=== PATIENT | female | born 1980 | race Caucasian/White ===

== ENCOUNTER 2017-06-28 10:00 | Emergency (ER) | payer OTHER ==
[2017-06-28 10:10] VITALS: BMI 30.1
--- NOTE | 2017-06-28 10:26 | PDOC ---
History of Present Illness - General Chief Complaint: Pain, Acute Stated Complaint: CONSTIPATION&FLANK PAIN Time Seen by Provider: 06/28/17 10:15 History Source: Patient - History of Present Illness Timing/Duration: reports: constant Quality: reports: moderate Abdominal Pain Onset Location: reports: flank Past History - Past Medical History Allergies/Adverse Reactions: Allergies Allergy/AdvReac Type Severity Reaction Status Date / Time No Known Allergies Allergy Verified 06/28/17 10:06 Home Medications: Ambulatory Orders Polyethylene Glycol 3350 [Miralax (For Daily Use) -] 17 gm PO DAILY #1 bottle Other medical history: DENIES - Psycho/Social/Smoking Cessation Hx Anxiety: No Suicidal Ideation: No Smoking Status: Yes Smoking History: Never smoked Have you smoked in the past 12 months: No Number of Cigarettes Smoked Daily: 0 Hx Alcohol Use: No Drug/Substance Use Hx: No Review of Systems - Review of Systems Constitutional: No: Chills, Fever, Malaise ABD/GI: Yes: Constipated, Abdominal cramping. No: Blood Streaked Bowels, Diarrhea, Nausea, Vomiting : No: Dysuria *Physical Exam - Vital Signs Last Vital Signs Temp Pulse Resp BP Pulse Ox 98.1 F 73 19 130/90 99 06/28/17 10:06 06/28/17 10:06 06/28/17 10:06 06/28/17 10:06 06/28/17 10:06 - Physical Exam General Appearance: Yes: Appropriately Dressed. No: Apparent Distress HEENT: positive: Normal Voice Neck: positive: Supple Respiratory/Chest: negative: Respiratory Distress Gastrointestinal/Abdominal: positive: Normal Bowel Sounds, Soft. negative: Tender, Distended, Guarding Rectal Exam: positive: other (no impaction). negative: hemorrhoids Musculoskeletal: negative: CVA Tenderness Extremity: positive: Normal Inspection Integumentary: positive: Dry, Warm Neurologic: positive: Fully Oriented, Alert, Normal Mood/Affect ED Treatment Course - LABORATORY CBC & Chemistry Diagram: 06/28/17 10:30 06/28/17 10:30 - RADIOLOGY Radiology Studies Ordered: Category Date Time Status ABDOMEN-KUB FLAT PLATE [RAD] Stat Radiology 06/28/17 10:22 Ordered Medical Decision Making - Medical Decision Making 06/28/17 10:23 36 yo F, no significant history, here with abdominal pain in the setting of constipation. Patient states for the past 2 weeks she has been constipated despite taking an [id number] laxative. At some point developed pain to right flank. No bright red blood per rectum, nausea, vomiting, fever or chills. No recent change in diet and no new medications. No history of similar symptoms in the past See exam Abd pain in setting of constipation Stable and well terry Abd benign w/ no rectal impaction -labs -Obs series -bowel regimen and reassess 06/28/17 11:25 Retained stool throughout colon compatible w/ constipation. No e/o rectal impaction of obstruction. labs wnl. Will given bowel regimen and reassess 06/28/17 12:44 Pt reports having several large BMs s/p meds and feels significantly better. Will dc home w/ bowel regimen and referral to PMD 06/28/17 12:52 *DC/Admit/Observation/Transfer Diagnosis at time of Disposition: Constipation Qualifiers: Constipation type: unspecified constipation type Qualified Code(s): K59.00 - Constipation, unspecified - Discharge Dispostion Disposition: HOME Condition at time of disposition: Improved - Prescriptions Prescriptions: Polyethylene Glycol 3350 [Miralax (For Daily Use) -] 17 gm PO DAILY #1 bottle - Referrals Referrals: Shaggy Huffman MD [Staff Physician] - - Patient Instructions Printed Discharge Instructions: Constipation Additional Instructions: Please be aware that you will continue to have BMs which may be watery, given enema in ED. Once this phase in complete, if you find that you continue to be constipated, start taking miralax as directed. If you resume your normal BM schedule, you can refrain from taking miralax Drink plenty of fluids and eat fruits and vegetables to prevent constipation in the future Please follow up with Dr Huffman for comprehensive evaluation
[2017-06-28 10:46] LABS: BASOPHIL 0.8 % (0-2.0); EOSINOPHIL 3.2 % (0-4.5); MCH 30.7 pg (25.7-33.7); MCHC 32.7 g/dl (32.0-36.0); MEAN CELL VOLUME 93.9 fl (80-96); MEAN PLT VOLUME 7.4 fl (7.5-11.1); NEUTROPHILS 66.6 % (42.8-82.8); PLATELET COUNT 317 K/MM3 (134-434); RDW 14.5 % (11.6-15.6)
[2017-06-28 11:05] LABS: URINE APPEARANCE CLEAR; URINE BILIRUBIN NEGATIVE (NEGATIVE); URINE BLOOD 2+ (NEGATIVE); URINE COLOR YELLOW; URINE GLUCOSE (UA) NEGATIVE (NEGATIVE); URINE KETONE NEGATIVE (NEGATIVE); URINE LEUK ESTERASE NEGATIVE (NEGATIVE); URINE NITRITE NEGATIVE (NEGATIVE); URINE PROTEIN NEGATIVE (NEGATIVE); URINE UROBILINOGEN NEGATIVE mg/dL (0.2-1.0)
[2017-06-28 11:09] LABS: URINE BACTERIA RARE /hpf (NONE SEEN); URINE MUCUS FEW; URINE RBC 2 /hpf (0-3); URINE WBC 2 /hpf (3-5)
[2017-06-28 11:16] LABS: ALBUMIN 3.4 g/dl (3.4-5.0); ALK PHOS 82 U/L (45-117); ANION GAP 3 (8-16); BILIRUBIN,TOTAL 0.2 mg/dL (0.2-1.0); CALCIUM 9.1 mg/dL (8.5-10.1); CO2 28 mmol/L (21-32); CREATININE 0.7 mg/dL (0.55-1.02); GLUCOSE,RANDOM 91 mg/dL (74-106); SGOT/AST 12 U/L (15-37); SGPT/ALT 30 U/L (12-78)
[2017-06-28] MEDS ORDERED: LACTULOSE 20 GM/30 ML UDC (FOR ORAL USE ONLY) PO ONE (11:24)
[2017-06-28] MEDS ORDERED: SODIUM PHOSPHATE/NA BIPHOS 133 ML ENEMA PR ONE (11:24)
[2017-06-28] MEDS ORDERED: LACTULOSE 20 GM/30 ML UDC (FOR ORAL USE ONLY) ONE (11:41)
--- NOTE | 2017-06-28 13:02 | PDOC ---
*Physical Exam - Vital Signs Last Vital Signs Temp Pulse Resp BP Pulse Ox 98.1 F 73 19 130/90 99 06/28/17 10:06 06/28/17 10:06 06/28/17 10:06 06/28/17 10:06 06/28/17 10:06 - Physical Exam General Appearance: Yes: Nourished, Appropriately Dressed HEENT: positive: EOMI, OMAR, Normal ENT Inspection, Normal Voice Neck: positive: Trachea midline Respiratory/Chest: positive: Lungs Clear, Normal Breath Sounds Cardiovascular: positive: Regular Rhythm, Regular Rate Gastrointestinal/Abdominal: positive: Normal Bowel Sounds, Soft. negative: Tender Extremity: positive: Normal Capillary Refill Integumentary: positive: Normal Color Neurologic: positive: software applications architect II-XII NML intact, Fully Oriented ED Treatment Course - LABORATORY CBC & Chemistry Diagram: 06/28/17 10:30 06/28/17 10:30 - ADDITIONAL ORDERS Additional order review: Laboratory Results 06/28/17 06/28/17 10:30 10:30 Sodium 137 Potassium 4.9 Chloride 106 Carbon Dioxide 28 Anion Gap 3 L BUN 12 Creatinine 0.7 Creat Clearance w eGFR > 60 Random Glucose 91 Calcium 9.1 Total Bilirubin 0.2 AST 12 L ALT 30 Alkaline Phosphatase 82 Total Protein 7.0 Albumin 3.4 Urine Color Yellow Urine Appearance Clear Urine pH 6.0 Urine Protein Negative Urine Glucose (UA) Negative Urine Ketones Negative Urine Blood 2+ H Urine Nitrite Negative Urine Bilirubin Negative Urine Urobilinogen Negative Ur Leukocyte Esterase Negative Urine RBC 2 Urine WBC 2 Ur Epithelial Cells Rare Urine Bacteria Rare Urine Mucus Few Urine HCG, Qual Negative 06/28/17 10:30 RBC 4.18 MCV 93.9 MCHC 32.7 RDW 14.5 MPV 7.4 L Neutrophils % 66.6 Lymphocytes % 23.5 Monocytes % 5.9 Eosinophils % 3.2 Basophils % 0.8 - Medications Given in the ED: ED Medications Discontinued Medications Generic Name Dose Route Start Last Admin Trade Name Freq PRN Reason Stop Dose Admin Lactulose 20 gm 06/28/17 11:24 06/28/17 11:50 Cephulac (Oral Use) PO 06/28/17 11:25 20 gm ONCE ONE Administration Sodium Phosphate 133 ml 06/28/17 11:24 06/28/17 11:50 Fleet Adult Rectal Enema - [place] 06/28/17 11:25 133 ml ONCE ONE Administration Medical Decision Making - Medical Decision Making Agree with PA's evaluation, assessment, and plan. 06/28/17 12:52 36 F presenting with abdominal cramping and constipation, now resolved after bowel regimen and enema in ER. Has had multiple BMs since arriving. Abdominal exam completely benign, w/o TTP or distention. No CVAT. Labs unremarkable. - DC home with bowel regimen - PMD f/u *DC/Admit/Observation/Transfer Diagnosis at time of Disposition: Constipation Qualifiers: Constipation type: unspecified constipation type Qualified Code(s): K59.00 - Constipation, unspecified - Discharge Dispostion Disposition: HOME Condition at time of disposition: Improved - Prescriptions Prescriptions: Polyethylene Glycol 3350 [Miralax (For Daily Use) -] 17 gm PO DAILY #1 bottle - Referrals Referrals: Shaggy Huffman MD [Staff Physician] - - Patient Instructions Printed Discharge Instructions: Constipation Additional Instructions: Please be aware that you will continue to have BMs which may be watery, given enema in ED. Once this phase in complete, if you find that you continue to be constipated, start taking miralax as directed. If you resume your normal BM schedule, you can refrain from taking miralax Drink plenty of fluids and eat fruits and vegetables to prevent constipation in the future Please follow up with Dr Huffman for comprehensive evaluation - Attestations Physician Attestion: 06/28/17 13:52 I, Dr. Gurinder Pinon MD, attest that this document has been prepared under my direction and personally reviewed by me in its entirety. I further attest, that it accurately reflects all work, treatment, procedures and medical decision -making performed by me.
[2017-06-28 13:10] VITALS: BP 123/71; PULSE 78; TEMP 98.5
== END 2017-06-28 13:11 | disposition home or self-care (01) ==
LOC: JER 10:00
DX: K59.00 Constipation, unspecified (principal)
CPT/HCPCS: 36415; 74000-TC; 80053; 81003; 81015; 84703; 85025; 99282-25

== ENCOUNTER 2018-03-31 22:08 | Emergency (ER) | payer OTHER ==
[2018-03-31 22:21] VITALS: BP 121/62; PULSE 70; TEMP 98.5; BMI 36.6
[2018-03-31] MEDS ORDERED: SULFAMETHOXAZOLE/TRIMETHOPRIM 800MG/160MG D.S. TABLET PO ONE (23:16)
[2018-03-31] MEDS ORDERED: SULFAMETHOXAZOLE/TRIMETHOPRIM 800MG/160MG D.S. TABLET ONE (23:19)
[2018-03-31] MEDS ORDERED: IBUPROFEN 400 MG TABLET (FP) PO ONE ×2 (23:23→23:26)
--- NOTE | 2018-03-31 23:23 | PDOC ---
History of Present Illness - General History Source: Patient Exam Limitations: No Limitations - History of Present Illness Initial Comments: 03/31/18 23:25 The patient is a 37 year old female with a significant PMH of hemorrhoids who presents to the emergency department with anal pain with nonspecific onset. The patient states she has had hemorrhoids for a significant amount of time which is contributing to her anal pain despite compliance with her inflammation creams. She also notes associated pressure in the lower gluteal area bilaterally. The patient denies fever and chills. She denies hematochezia or melena. The patient denies chest pain, shortness of breath, headache and dizziness. Denies nausea, vomit, diarrhea and constipation. Denies dysuria, frequency, urgency and hematuria. Allergies: NKA Past surgical history: Social history: No reported cigarette, alcohol, or drug use. PCP: Dr. Ruiz <Bud Blas - Last Filed: 03/31/18 23:24> - General History Source: Patient <Wiley Biswas - Last Filed: 04/01/18 19:21> - General Chief Complaint: Pain Stated Complaint: PAIN Time Seen by Provider: 03/31/18 23:16 Past History <Bud Blas - Last Filed: 03/31/18 23:24> - Past Medical History COPD: No - Suicide/Smoking/Psychosocial Hx Smoking Status: Yes Smoking History: Never smoked Have you smoked in the past 12 months: No Number of Cigarettes Smoked Daily: 0 Information on smoking cessation initiated: No Hx Alcohol Use: No Drug/Substance Use Hx: No Substance Use Type: None <Wiley Biswas - Last Filed: 04/01/18 19:21> - Past Medical History Allergies/Adverse Reactions: Allergies Allergy/AdvReac Type Severity Reaction Status Date / Time No Known Allergies Allergy Verified 03/31/18 22:20 Home Medications: Ambulatory Orders Ibuprofen 800 mg PO TID #30 tablet 03/31/18 Sulfamethoxazole/Trimethoprim [Bactrim *Ds*] 1 tab PO BID #14 tablet 03/31/18 Review of Systems - Review of Systems Able to Perform ROS?: Yes Comments:: 03/31/18 23:25 CONSTITUTIONAL: Absent: fever, chills, diaphoresis, generalized weakness, malaise, loss of appetite HEENT: Absent: rhinorrhea, nasal congestion, throat pain, throat swelling, difficulty swallowing, mouth swelling, ear pain, eye pain, visual Changes CARDIOVASCULAR: Absent: chest pain, syncope, palpitations, irregular heart rate, lightheadedness , peripheral edema RESPIRATORY: Absent: cough, shortness of breath, dyspnea with exertion, orthopnea, wheezing, stridor, hemoptysis GASTROINTESTINAL:(+) Anal pain. Absent: abdominal pain, abdominal distension, nausea, vomiting, diarrhea, constipation, melena, hematochezia GENITOURINARY: Absent: dysuria, frequency, urgency, hesitancy, hematuria, flank pain, genital pain MUSCULOSKELETAL: Absent: myalgia, arthralgia, joint swelling SKIN: Absent: rash, itching, pallor HEMATOLOGIC/IMMUNOLOGIC: Absent: easy bleeding, easy bruising, lymphadenopathy, frequent infections ENDOCRINE: Absent: unexplained weight gain, unexplained weight loss, heat intolerance, cold intolerance NEUROLOGIC: Absent: headache, focal weakness or paresthesias, dizziness, unsteady gait, seizure, mental status changes, bladder or bowel incontinence PSYCHIATRIC: Absent: anxiety, depression, suicidal or homicidal ideation, hallucinations. <Bud Blas - Last Filed: 03/31/18 23:24> *Physical Exam - Vital Signs Last Vital Signs Temp Pulse Resp BP Pulse Ox 98.5 F 70 18 121/62 100 03/31/18 22:18 03/31/18 22:18 03/31/18 22:18 03/31/18 22:18 03/31/18 22:18 - Physical Exam Comments: 03/31/18 23:25 GENERAL: Well developed, well nourished. Awake and alert. No acute distress. HEENT: Normocephalic, atraumatic. PERRLA, EOMI. No conjunctival pallor. Sclera are non- icteric. Moist mucous membranes. Oropharynx is clear. NECK: Supple. Full ROM. No JVD. Carotid pulses 2+ and symmetric, without bruits. No thyromegaly. No lymphadenopathy. CARDIOVASCULAR: Regular rate and rhythm. No murmurs, rubs, or gallops. Distal pulses are 2+ and symmetric. PULMONARY: No evidence of respiratory distress. Lungs clear to auscultation bilaterally. No wheezing, rales or rhonchi. ABDOMINAL: Soft. Non-tender. Non-distended. No rebound or guarding. No organomegaly. Normoactive bowel sounds. RECTAL: (+) External hemorrhoid at 7 o'clock position. Soft and nontender. (+) Tenderness and firmness at anal verge. Nonfluctuant. MUSCULOSKELETAL Normal range of motion at all joints. No bony deformities or tenderness. No CVA tenderness. EXTREMITIES: No cyanosis. No clubbing. No edema. No calf tenderness. SKIN: Warm and dry. Normal capillary refill. No rashes. No jaundice. NEUROLOGICAL: Alert, awake, appropriate. Cranial nerves 2-12 intact. No deficits to light touch and temperature in face, upper extremities and lower extremities. No motor deficits in the in face, upper extremities and lower extremities. Normoreflexic in the upper and lower extremities. Normal speech. Toes are downgoing bilaterally. Gait is normal without ataxia. PSYCHIATRIC: Cooperative. Good eye contact. Appropriate mood and affect. <Bud Blas - Last Filed: 03/31/18 23:24> - Vital Signs Last Vital Signs Temp Pulse Resp BP Pulse Ox 98.5 F 70 18 121/62 100 03/31/18 22:18 03/31/18 22:18 03/31/18 22:18 03/31/18 22:18 03/31/18 22:18 <Wiley Biswas - Last Filed: 04/01/18 19:21> ED Treatment Course - Medications Given in the ED: ED Medications Discontinued Medications Generic Name Dose Route Start Last Admin Trade Name Freq PRN Reason Stop Dose Admin Oxycodone/Acetaminophen 1 combo 03/31/18 23:16 03/31/18 23:23 Percocet 5/325 - PO 03/31/18 23:17 Not Given ONCE ONE Trimethoprim/Sulfamethoxazole 1 each 03/31/18 23:16 03/31/18 23:23 Bactrim Ds - PO 03/31/18 23:17 1 each ONCE ONE Administration <Bud Blas - Last Filed: 03/31/18 23:24> Medical Decision Making - Medical Decision Making 04/01/18 19:21 Dr. Biswas: The scribe's documentation has been prepared under my direction and personally reviewed by me in its entirery. I confirm that the note above accurately reflects all work, treatment, procedures, and medical decision making performed by me. <Wiley Biswas Last Filed: 04/01/18 19:21> *DC/Admit/Observation/Transfer - Attestations Scribe Attestion: 03/31/18 23:25 Documentation prepared by Bud Blas, acting as certified medical asst for Wiley Biswas DO. <Bud Blas - Last Filed: 03/31/18 23:24> - Discharge Dispostion Decision to Admit order: No <Wiley Biswas - Last Filed: 04/01/18 19:21> Diagnosis at time of Disposition: External hemorrhoid, Anal pain - Discharge Dispostion Disposition: HOME Condition at time of disposition: Stable - Prescriptions Prescriptions: Ibuprofen 800 mg PO TID #30 tablet Sulfamethoxazole/Trimethoprim [Bactrim *Ds*] 1 tab PO BID #14 tablet - Referrals Referrals: Satish Ruiz MD [Primary Care Provider] - Hernesto Avilez MD [Staff Physician] - Claudy Jonhston MD [Staff Physician] - - Patient Instructions Printed Discharge Instructions: Hemorrhoids, DI for Anal Abscess - Post Discharge Activity
== END 2018-03-31 23:32 | disposition home or self-care (01) ==
LOC: JER 22:08
DX: K64.4 Residual hemorrhoidal skin tags (principal)
CPT/HCPCS: 99282-25

== ENCOUNTER 2024-03-17 04:01 | Inpatient (IN) | payer OTHER ==
[2024-03-11 12:26] VITALS: BMI 27.4
[2024-03-17] MEDS ORDERED: FENTANYL CITRATE/PF 50 MCG/ML VIAL ONE (09:48)
[2024-03-17] MEDS ORDERED: PROPOFOL 20 ML ONE ×2 (09:48→11:29)
[2024-03-17] MEDS ORDERED: ONDANSETRON 4 MG/2 ML VIAL ONE (09:48)
[2024-03-17] MEDS ORDERED: ROCURONIUM BROMIDE 50 MG/5 ML SYRINGE ONE ×2 (09:48→11:29)
[2024-03-17] MEDS ORDERED: MIDAZOLAM HCL 2 MG/2 ML SINGLE DOSE VIAL ONE (09:48)
[2024-03-17] MEDS ORDERED: LIDOCAINE HCL/PF 2% SDV 5ML VIAL ONE (09:49)
[2024-03-17] MEDS ORDERED: BUPIVACAINE LIPOSOME/PF (EXPAREL) 266 MG/20 ML VIAL ONE (10:13)
[2024-03-17] MEDS ORDERED: BUPIVACAINE HCL/PF 0.5% (5MG/ML) 10 ML VIAL ONE (10:13)
[2024-03-17] MEDS ORDERED: DEXAMETHASONE SOD PHOSPHATE 4 MG/1 ML VIAL ONE (10:59)
[2024-03-17] MEDS ORDERED: HYDROmorphone HCl 2 MG/ML VIAL ONE (11:02)
[2024-03-17] MEDS: ceFAZolin SODIUM 1 GM VIAL IVPB ONE ×2 (11:12→11:14)
[2024-03-17] MEDS ORDERED: ceFAZolin SODIUM 1 GM VIAL ONE (11:12)
[2024-03-17] MEDS ORDERED: GLYCOPYRROLATE 0.2 MG/1 ML VIAL ONE (11:46)
[2024-03-17] MEDS ORDERED: SUGAMMADEX SODIUM 200 MG/2 ML VIAL ONE (12:54)
[2024-03-17] MEDS ORDERED: KETOROLAC TROMETHAMINE 30 MG/1 ML VIAL ONE (12:58)
[2024-03-17] MEDS: ACETAMINOPHEN 1000 MG/100 ML BAG IVPB ONE (13:00)
[2024-03-17] MEDS ORDERED: ACETAMINOPHEN INJECTION 100 ML IVPB ONE (13:00)
[2024-03-17] MEDS ORDERED: oxyCODONE HCL 5 MG TABLET PO PRN (13:28)
[2024-03-17] MEDS ORDERED: ONDANSETRON 4 MG/2 ML VIAL IVPUSH PRN (14:07)
[2024-03-17] MEDS: LACTATED RINGERS SOLUTION 1,000 ML IV SCH (15:35)
[2024-03-17] MEDS: KETOROLAC TROMETHAMINE 30 MG/1 ML VIAL IVPUSH SCH (18:53)
[2024-03-17] MEDS: ACETAMINOPHEN 500 MG TABLET (FP) PO SCH (18:54)
[2024-03-18 01:49] VITALS: RESP 16
[2024-03-18 09:16] VITALS: BP 97/58; PULSE 60; TEMP 97.9
[2024-03-18] MEDS: FERROUS SO4 325 MG TABLET (FP) PO SCH (09:25)
[2024-03-18] MEDS: IBUPROFEN 600 MG TABLET (FP) PO SCH (09:25)
[2024-03-18 10:07] LABS: BASO % 0.3 % (0-2.0); EOS % 2.5 % (0-4.5); HEMATOCRIT 34.4 % (32.4-45.2); HEMOGLOBIN 11.5 GM/dL (10.7-15.3); LYMPH % 21.9 % (8-40); MCHC 33.5 g/dl (32.0-36.0); MEAN CELL VOLUME 101.7 fl (80-96); MEAN PLT VOLUME 7.7 fl (7.5-11.1); MONO % 5.6 % (3.8-10.2); NEUT % 69.7 % (42.8-82.8); PLATELET COUNT 252 10^3/uL (134-434); RBC 3.38 M/mm3 (3.60-5.2); WHITE BLOOD COUNT 6.8 K/mm3 (4.0-10.0)
[2024-03-18 13:04] LABS: MCH 33.6 pg (25.7-33.7); MCHC 32.5 g/dl (32.0-36.0); MEAN CELL VOLUME 103.2 fl (80-96); MEAN PLT VOLUME 7.7 fl (7.5-11.1); PLATELET COUNT 277 10^3/uL (134-434); RBC 3.59 M/mm3 (3.60-5.2); RDW 15.1 % (11.6-15.6); WHITE BLOOD COUNT 7.4 K/mm3 (4.0-10.0)
== END 2024-03-18 14:51 | disposition home or self-care (01) | DRG 519 ==
LOC: J2C 04:01 → J3W 15:46
PROVIDERS: ADMIT Obstetrics & Gynecology; ATTEND Obstetrics & Gynecology
PROC: 0UT70ZZ Resection of Bilateral Fallopian Tubes, Open Approach (ICD-10-PCS; 2024-03-17)
PROC: 0DNU0ZZ Release Omentum, Open Approach (ICD-10-PCS; 2024-03-17)
PROC: 0UT90ZL Resection of Uterus, Supracervical, Open Approach (ICD-10-PCS; principal; 2024-03-17 10:00)
DX: D25.9 Leiomyoma of uterus, unspecified (principal); N32.89 Other specified disorders of bladder; N73.6 Female pelvic peritoneal adhesions (postinfective)
CPT/HCPCS: 36415; 81025; 85025; 85027; 86850; 86900; 86901; 88305-TC; 88307-TC; 94760; J0131